=== PATIENT | female | born 1990 | race Caucasian/White ===

== ENCOUNTER 2017-09-05 20:43 | Emergency (ER) | payer BC ==
[~2017-09-05] VITALS: Ht 162.6 cm; Wt 86.2 kg
--- OUTSIDE RECORDS SUMMARY | 2017-09-05 20:45 | XMS REPORT ---
Author Author [facility] Address Unknown Phone Unavailable Care Team Providers Care Car Lubricator Name Role Phone PRETTY VEGA Unavailable Unavailable Problems This patient has no known problems. Allergies, Adverse Reactions, Alerts This patient has no known allergies or adverse reactions. Medications This patient has no known medications. Results Test Description Test Time Test Comments Text Results Atomic Results Result Comments CT ABDOMEN/PELVIS W [place] [address] Patient Name: EUGENE ELMORE MR #: [id number] : 1990 Age/Sex: 26/F Req #: [id number] Adm Physician: Ordered by: PRETTY VEGA DO Report #: [id number] Location: CT Room/Bed: Procedure: [id number] CT/CT ABDOMEN/PELVIS W Exam Date: 09/05/17 Exam Time: 1854 REPORT STATUS: Signed EXAM: CT Abdomen and Pelvis WITH contrast INDICATION: COMPARISON: None. TECHNIQUE: Abdomen and pelvis were scanned utilizing a multidetector helical scanner from the lung base to the pubic symphysis after administration of IV contrast. Coronal and sagittal reformations were obtained. Routine protocol was performed. Scan was performed when during portal venous phase. In addition delayed images with oral contrast were obtained. IV CONTRAST: 100 mL of Isovue-300 ORAL CONTRAST: Gastrografin RADIATION DOSE: Total DLP: ... mGy*cm Estimated effective dose: (DLP x 0.015 x size factor) mSv COMPLICATIONS: None FINDINGS: LINES and TUBES: None. LOWER THORAX: Unremarkable HEPATOBILIARY: No focal hepatic lesions. No biliary ductal dilation. GALLBLADDER: No radio-opaque stones or sludge. No wall thickening. SPLEEN: No splenomegaly. PANCREAS: No focal masses or ductal dilatation. ADRENALS: No adrenal nodules KIDNEYS/URETERS : Kidneys enhance symmetrically. No hydronephrosis. No cystic or solid mass lesions. No stones. GI TRACT: No abnormal distention, wall thickening, or evidence of bowel obstruction. Nonspecific minimal wall thickening of a few loops of the small bowel without dilatation. Appendix is not visualized but no inflammatory changes in the right lower quadrant. PELVIC ORGANS/ BLADDER: 4.9 x 4.5 cm right adnexal cyst. The uterus appears unremarkable. No left adnexal mass or cyst. LYMPH NODES: No lymphadenopathy. VESSELS: Unremarkable. PERITONEUM / RETROPERITONEUM: Small to moderate amount of hyperdense free fluid in the pelvis and extending into the mid abdomen, measuring 54 Hounsfield units. No free air. BONES: Unremarkable. SOFT TISSUES: Unremarkable. IMPRESSION: Large right adnexal cyst with a small to moderate amount of hyperdense free fluid in the pelvis concerning for hemorrhage. Differential diagnosis included rupture hemorrhagic cyst or ruptured ectopic given patient's history. Appendix not visualized but no inflammatory changes in the right lower quadrant. These findings were communicated to Dr Borrego on 09/05/2017 at 8:20PM, also with the patient (through the phone) who refers that had recent miscarriage, and with ER Dr Murray. Patient sent to ER for further evaluation and management. Signed by: Dr. Nova Melendrez M.D. on 09/05/2017 8:32 PM Dictated By: NOVA MELENDREZ MD 31 Transcribed By: TYREL on 09/05/172031 COPY TO: PRETTY VEGA DO
[2017-09-05] MEDS ORDERED: SODIUM CHLORIDE 0.9% 1000ML 1,000 ML IV STA (21:04)
[2017-09-05 21:17] LABS: BASOPHILS # (AUTO) 0.1 (0.0-0.1); BASOPHILS % 0.4 % (0.0-1.0); EOSINOPHILS % 0.1 % (0.0-6.0); HEMATOCRIT 33.9 % (34.2-44.1); HEMOGLOBIN 11.7 g/dL (12.0-16.0); LYMPHOCYTES # (AUTO) 1.3 (1.0-3.2); MEAN CORPUSCULAR HEMOGLOBIN 28.5 pg (28-32); MEAN CORPUSCULAR HGB CONC 34.5 g/dL (31-35); MEAN CORPUSCULAR VOLUME 82.7 fL (81-99); MONOCYTES # (AUTO) 0.3 (0.2-0.8); MONOCYTES % 1.8 % (4.4-11.3); NEUTROPHILS # (AUTO) 12.5 (2.1-6.9); NEUTROPHILS % 88.1 % (38.7-80.0); PLATELET COUNT 253 x10e3/uL (140-360); RED CELL DISTRIBUTION WIDTH 13.5 % (11.7-14.4)
[2017-09-05 21:20] LABS: INR 1.09; PROTHROMBIN TIME 13.3 seconds (11.9-14.5)
[2017-09-05 21:21] LABS: PARTIAL THROMBOPLASTIN TIME 30.3 seconds (23.8-35.5)
[2017-09-05 21:30] LABS: ALANINE AMINOTRANSFERASE 18 IU/L (0-55); ALBUMIN 3.9 g/dL (3.5-5.0); ALBUMIN/GLOBULIN RATIO 0.9 (0.8-2.0); ALKALINE PHOSPHATASE 77 IU/L (40-150); ANION GAP 12.9 mmol/L (8-16); BLOOD UREA NITROGEN 9 mg/dL (7-26); BUN/CREATININE RATIO 12 (6-25); CALCIUM 9.5 mg/dL (8.4-10.2); CARBON DIOXIDE 25 mmol/L (22-29); CHLORIDE 104 mmol/L (98-107); CREATININE, SERUM 0.78 mg/dL (0.57-1.11); EST GLOMERULAR FILTRATION RATE > 60 ML/MIN (60-); GLUCOSE 109 mg/dL (74-118); MAGNESIUM 1.7 MG/DL (1.3-2.1); POTASSIUM 3.9 mmol/L (3.5-5.1); SODIUM 138 mmol/L (136-145)
[2017-09-05] MEDS ORDERED: MORPHINE SULFATE 2 MG/ML SYR IV STA ×2 (21:35→23:43)
[2017-09-05] MEDS ORDERED: ONDANSETRON HCL 4 MG ORAL DISINTEGRATING TAB PO ONE (21:45)
[2017-09-05] MEDS ORDERED: PROMETHAZINE 12.5MG/ NACL 0.9% 12.5 MG/50 ML BAG IV ONE (23:45)
[2017-09-06 00:28] VITALS: BP 129/86
== END 2017-09-06 00:30 | disposition short-term general hospital (02) ==
LOC: ER 20:43
DX: N83.11 Corpus luteum cyst of right ovary (principal)
CPT/HCPCS: 36415; 80053; 83735; 84702; 85025; 85610; 85730; 86850; 86900; 99284; J2270; J2550; J7030

== ENCOUNTER → 2017-09-05 | Outpatient (CLI) | payer BC ==
[~2017-09-05] MED LIST: DIATRIZOATE MEGL/DIATRIZOA SOD 30 ML BTL PO ONE; IOPAMIDOL 370 MG/ML 200 ML INFUS..BTL INJ ONE; SODIUM CHLORIDE 0.9% 50ML 50 ML ONE
--- NOTE | 2017-09-05 20:35 | Diagnostic Imaging Report ---
EXAM: CT Abdomen and Pelvis WITH contrast INDICATION: \[id number] \S\[id number] \S\[id number] PAIN COMPARISON: None. TECHNIQUE: Abdomen and pelvis were scanned utilizing a multidetector helical scanner from the lung base to the pubic symphysis after administration of IV contrast. Coronal and sagittal reformations were obtained. Routine protocol was performed. Scan was performed when during portal venous phase. In addition delayed images with oral contrast were obtained. IV CONTRAST: 100 mL of Isovue-300 ORAL CONTRAST: Gastrografin RADIATION DOSE: Total DLP: ... mGy*cm Estimated effective dose: (DLP x 0.015 x size factor) mSv COMPLICATIONS: None FINDINGS: LINES and TUBES: None. LOWER THORAX: Unremarkable HEPATOBILIARY: No focal hepatic lesions. No biliary ductal dilation. GALLBLADDER: No radio-opaque stones or sludge. No wall thickening. SPLEEN: No splenomegaly. PANCREAS: No focal masses or ductal dilatation. ADRENALS: No adrenal nodules KIDNEYS/URETERS: Kidneys enhance symmetrically. No hydronephrosis. No cystic or solid mass lesions. No stones. GI TRACT: No abnormal distention, wall thickening, or evidence of bowel obstruction. Nonspecific minimal wall thickening of a few loops of the small bowel without dilatation. Appendix is not visualized but no inflammatory changes in the right lower quadrant. PELVIC ORGANS/BLADDER: 4.9 x 4.5 cm right adnexal cyst. The uterus appears unremarkable. No left adnexal mass or cyst. LYMPH NODES: No lymphadenopathy. VESSELS: Unremarkable. PERITONEUM / RETROPERITONEUM: Small to moderate amount of hyperdense free fluid in the pelvis and extending into the mid abdomen, measuring 54 Hounsfield units. No free air. BONES: Unremarkable. SOFT TISSUES: Unremarkable. IMPRESSION: Large right adnexal cyst with a small to moderate amount of hyperdense free fluid in the pelvis concerning for hemorrhage. Differential diagnosis included rupture hemorrhagic cyst or ruptured ectopic given patient's history. Appendix not visualized but no inflammatory changes in the right lower quadrant. These findings were communicated to Dr Borrego on 09/05/2017 at 8:20PM, also with the patient (through the phone) who refers that had recent miscarriage, and with ER Dr Murray. Patient sent to ER for further evaluation and management. Signed by: Dr. Azucena Jennings M.D. on 09/05/2017 8:32 PM
== END ==
LOC: CT 17:33
PROVIDERS: ATTEND Family Medicine
DX: R10.31 Right lower quadrant pain (principal)
CPT/HCPCS: 74177; Q9967